=== PATIENT | female | born 1960 | race Caucasian/White ===

== ENCOUNTER 2016-11-01 09:13 | Inpatient (IN) | payer OTHER, BC ==
[~2016-11-01] VITALS: Ht 157.5 cm; Wt 61.6 kg
[~2016-11-01 09:13] MED LIST: ADULT LOW DOSE81 M1 PO; ARANESP100 MCG/0. IV; ASPIRIN81 M2 PO; AVINZA30 MG PO; CALCITRIOL0.25 MCG PO; CALCITRIOL0.5 MCG PO; CLEOCIN300 MG PO; CRESTOR10 MG PO; CRESTOR20 MG PO; DELTASONE DOSEPA5 MG PO; DILAUDID2 MG PO; ESCITALOPRAM OX20 MG PO; ESTRACE1 MG PO; FISH OIL 1,0001 EAC7 PO; FLEXERIL10 MG PO; HECORIA1 MG PO; HUMALOG100 UNIT/1; HUMALOG100 UNIT/2 SC; HYDROCODON-ACE1 EAC7 PO; LANTUS 10100 UNITS/ SC; LANTUS 3 M100 UNITS1 SC; LANTUS 3 M100 UNITS1 SQ; LEVEMIR100 UNIT/2 SC; LEXAPRO20 MG PO; MIRALAX17 GM PO; NORVASC10 MG PO; NORVASC5 MG PO; PREDNISONE5 MG PO; PROGRAF1 MG PO; PROTONIX40 MG PO; ROXICODONE5 MG PO; SODIUM BICARBO325 MG PO; TACROLIMUS ANHYD1 MG PO; TOPROL XL6.25 MG PO; VALACYCLOVIR500 MG PO; VITAMIN D2000 UNIT PO; ZOFRAN4 MG PO
[2016-11-01 10:36] LABS: HEMATOCRIT 53.2 % (36.0-46.0); MCH 31.9 PG (29.0-34.0); MCHC 32.5 G/DL (30.0-36.0); MCV 98.2 FL (83-99); MEAN PLAT.VOLUME 9.7 uM^3 (9.5-12.4); PLATELET COUNT 203 K/uL (156-360); RBC DIS.WIDTH-CV 16.2 % (11.8-14.6); RBC DIS.WIDTH-SD 55.4 % (39-53); RED BLOOD COUNT 5.42 M/uL (3.80-5.20); WHITE BLOOD COUNT 13.3 K/uL (4.1-10.2)
[2016-11-01 10:47] LABS: CHLORIDE 95 mEq/L (99-109); SODIUM 138 mEq/L (136-147)
[2016-11-01 10:49] LABS: GLUCOSE 115 mg/dL (70-99)
[2016-11-01 10:51] LABS: ANION GAP 19 MEQ/L (2-14); TOTAL BILIRUBIN 0.5 mg/dL (0.0-1.0)
[2016-11-01 10:53] LABS: ALKALINE PHOSPHATASE 213 IU/L (3-129); GFR ESTIMATE (CALCULATED) 3 mL/min/
[2016-11-01 10:54] LABS: UREA NITROGEN (BUN) 55 mg/dL (9-23)
[2016-11-01 10:55] LABS: POTASSIUM 6.4 mEq/L (3.7-5.4)
[2016-11-01 10:56] LABS: LIPASE 21 U/L (1.0-51.0)
[2016-11-01 12:53] LABS: POTASSIUM 5.9 mEq/L (3.7-5.4)
[2016-11-01 13:08] LABS: EOSINOPHIL (%) 2.9 % (0-5); EOSINOPHIL COUNT 0.4 K/uL (0-0.3); IMMATURE GRANULOCYTE (%) 0.1 % (0.0-0.7); IMMATURE GRANULOCYTE COUNT 0.1 K/uL; LYMPHOCYTE COUNT 1.6 K/uL (1.0-2.8); MONOCYTE (%) 5.9 % (3-12); MONOCYTE COUNT 0.8 K/uL (0-0.8); NEUTROPHIL (%) 79.4 % (45-76); NEUTROPHIL COUNT 10.9 K/uL (1.8-6.4)
[2016-11-01 19:23] VITALS: BP 144/70
[2016-11-01] MEDS ORDERED: TOPROL XL50 MG PO (20:20)
[2016-11-01] MEDS ORDERED: OXYCODONE HCL10 MG PO (20:21)
[2016-11-01] MEDS ORDERED: TACROLIMUS ANHYD1 MG PO (20:25)
[2016-11-01] MEDS ORDERED: LINZESS145 MCG PO (20:27)
[2016-11-01] MEDS ORDERED: CALCIUM ACETAT667 MG PO (20:27)
[2016-11-01] MEDS ORDERED: SENSIPAR60 MG PO (20:28)
[2016-11-01] MEDS ORDERED: FUROSEMIDE40 MG PO (20:29)
[2016-11-01] MEDS ORDERED: PRISTIQ ER25 MG PO (20:29)
[2016-11-01] MEDS ORDERED: ESTRACE42.5 GM VG (20:30)
[2016-11-01 23:44] VITALS: BP 139/68
[2016-11-02 04:08] VITALS: BP 141/73
[2016-11-02 07:28] VITALS: BP 134/67
[2016-11-02 09:19] LABS: ANION GAP 16 MEQ/L (2-14); CHLORIDE 99 MEQ/L (99-109); SAMPLE HEMOLYSIS CHECK 0; SAMPLE ICTERIC CHECK 0; SAMPLE LIPEMIA CHECK 0; SODIUM 139 MEQ/L (136-147)
[2016-11-02 09:21] LABS: POTASSIUM 4.6 MEQ/L (3.7-5.4)
[2016-11-02 09:25] LABS: GLUCOSE 92 mg/dL (70-99)
[2016-11-02 09:26] LABS: EOSINOPHIL (%) 4.2 % (0-5); EOSINOPHIL COUNT 0.4 K/uL (0-0.3); HEMATOCRIT 46.4 % (36.0-46.0); IMMATURE GRANULOCYTE (%) 0.2 % (0.0-0.7); LYMPHOCYTE COUNT 1.4 K/uL (1.0-2.8); MCH 33.4 PG (29.0-34.0); MCHC 33.2 G/DL (30.0-36.0); MCV 100.7 FL (83-99); MEAN PLAT.VOLUME 10.8 uM^3 (9.5-12.4); MONOCYTE (%) 8.8 % (3-12); MONOCYTE COUNT 0.8 K/uL (0-0.8); NEUTROPHIL (%) 70.5 % (45-76); PLATELET COUNT 150 K/uL (156-360); RBC DIS.WIDTH-CV 16.2 % (11.8-14.6); RBC DIS.WIDTH-SD 58.5 % (39-53); RED BLOOD COUNT 4.61 M/uL (3.80-5.20)
[2016-11-02 09:27] LABS: WHITE BLOOD COUNT 8.5 K/uL (4.1-10.2)
[2016-11-02 09:42] LABS: GFR ESTIMATE (CALCULATED) 7 mL/min/
[2016-11-02 09:53] LABS: UREA NITROGEN (BUN) 17 mg/dL (9-23)
[2016-11-02 12:30] VITALS: BP 144/81
[2016-11-02 15:22] VITALS: BP 135/70
[2016-11-02 19:18] VITALS: BP 128/66
[2016-11-02 21:21] LABS: POINT-OF-CARE METER ID UU14174225
[2016-11-03 00:11] VITALS: BP 119/79
[2016-11-03 03:38] VITALS: BP 123/71
[2016-11-03 07:07] LABS: HEMATOCRIT 46.8 % (36.0-46.0); MCH 33.2 PG (29.0-34.0); MCHC 32.9 G/DL (30.0-36.0); MCV 100.9 FL (83-99); MEAN PLAT.VOLUME 10.6 uM^3 (9.5-12.4); NRBC (%) 0.9 /100 WBC (0-0); PLATELET COUNT 155 K/uL (156-360); RBC DIS.WIDTH-CV 16.3 % (11.8-14.6); RBC DIS.WIDTH-SD 58.1 % (39-53); RED BLOOD COUNT 4.64 M/uL (3.80-5.20); WHITE BLOOD COUNT 7.2 K/uL (4.1-10.2)
[2016-11-03 07:38] LABS: ANION GAP 16 MEQ/L (2-14); CHLORIDE 99 MEQ/L (99-109); GFR ESTIMATE (CALCULATED) 11 mL/min/; GLUCOSE 62 mg/dL (70-99); POTASSIUM 4.5 MEQ/L (3.7-5.4); SAMPLE HEMOLYSIS CHECK 0; SAMPLE ICTERIC CHECK 0; SAMPLE LIPEMIA CHECK 0; SODIUM 142 MEQ/L (136-147); UREA NITROGEN (BUN) 15 mg/dL (9-23)
[2016-11-03 07:43] LABS: EOSINOPHIL (%) 1.5 % (0-5); EOSINOPHIL COUNT 0.1 K/uL (0-0.3); IMMATURE GRANULOCYTE (%) 0.3 % (0.0-0.7); LYMPHOCYTE COUNT 1.9 K/uL (1.0-2.8); MONOCYTE (%) 6.4 % (3-12); MONOCYTE COUNT 0.5 K/uL (0-0.8); NEUTROPHIL (%) 65.5 % (45-76); NEUTROPHIL COUNT 4.8 K/uL (1.8-6.4)
[2016-11-03 08:47] VITALS: BP 138/68
[2016-11-03 11:44] VITALS: BP 134/71
[2016-11-03 12:14] LABS: POINT-OF-CARE METER ID UU14188625
== END 2016-11-03 15:10 | disposition home or self-care (01) | DRG 70 ==
LOC: EME 09:13 → EDOF 14:17 → 5SOUTH 15:02
PROVIDERS: Emergency Medicine; Hospitalist; Internal Medicine Nephrology; Nurse Practitioner Family; Student in an Organized Health Care Education/Training Program
PROC: 5A1D00Z (ICD-10-PCS; principal; 2016-11-01)
DX: G93.41 Metabolic encephalopathy (principal); N18.6 End stage renal disease; Z94.0 Kidney transplant status; I12.0 Hypertensive chronic kidney disease with stage 5 chronic kidney disease or end stage renal disease; F33.9 Major depressive disorder, recurrent, unspecified; F05 Delirium due to known physiological condition; E87.5 Hyperkalemia; E78.5 Hyperlipidemia, unspecified; D63.1 Anemia in chronic kidney disease; K21.9 Gastro-esophageal reflux disease without esophagitis; E55.9 Vitamin D deficiency, unspecified; J45.909 Unspecified asthma, uncomplicated; G89.29 Other chronic pain; Z85.3 Personal history of malignant neoplasm of breast; Z96.643 Presence of artificial hip joint, bilateral; Z90.11 Acquired absence of right breast and nipple; L91.8 Other hypertrophic disorders of the skin; Z79.4 Long term (current) use of insulin; Z99.2 Dependence on renal dialysis
CPT/HCPCS: 70450; 71020; 76770; 76776; 80048; 80053; 80197 90; 81003; 82140; 82948; 83605; 83690; 84132 91; 84999; 85025; 85027; 93005; 99281; 99285; J1644; J1815; J7030; J7507; J7512

== ENCOUNTER 2016-11-08 13:55 | Emergency (ER) | payer OTHER, BC ==
[~2016-11-08] VITALS: Ht 157.5 cm; Wt 57.7 kg
[~2016-11-08 13:55] MED LIST changes: +CALCIUM ACETAT667 MG PO; +ESTRACE42.5 GM VG; +FUROSEMIDE40 MG PO; +LINZESS145 MCG PO; +OXYCODONE HCL10 MG PO; +PRISTIQ ER25 MG PO; +SENSIPAR60 MG PO; +TOPROL XL50 MG PO
[2016-11-08 14:21] VITALS: BP 103/63
[2016-11-08 14:40] LABS: CHLORIDE 91 mEq/L (99-109); POTASSIUM 3.8 mEq/L (3.7-5.4); SODIUM 143 mEq/L (136-147)
[2016-11-08 14:42] LABS: GLUCOSE 241 mg/dL (70-99)
[2016-11-08 14:43] LABS: ANION GAP 18 MEQ/L (2-14)
[2016-11-08 14:50] LABS: GFR ESTIMATE (CALCULATED) 6 mL/min/; UREA NITROGEN (BUN) 23 mg/dL (9-23)
[2016-11-08 15:01] VITALS: BP 92/60
[2016-11-08 15:53] LABS: HEMATOCRIT 45.8 % (36.0-46.0); MCH 32.8 PG (29.0-34.0); MCV 99.3 FL (83-99); RBC DIS.WIDTH-CV 16.8 % (11.8-14.6); RBC DIS.WIDTH-SD 58.7 % (39-53); RED BLOOD COUNT 4.61 M/uL (3.80-5.20); WHITE BLOOD COUNT 7.4 K/uL (4.1-10.2)
[2016-11-08 16:00] VITALS: BP 93/57
[2016-11-08 16:31] VITALS: BP 84/53
[2016-11-08 16:48] LABS: MEAN PLAT.VOLUME 11.4 uM^3 (9.5-12.4)
[2016-11-08 16:49] LABS: PLATELET COUNT 106 K/uL (156-360)
[2016-11-08 17:00] VITALS: BP 95/51
[2016-11-08 17:14] VITALS: BP 95/51
== END 2016-11-08 17:16 | disposition home or self-care (01) ==
LOC: EME 13:55
PROVIDERS: Emergency Medicine
DX: S00.93XA Contusion of unspecified part of head, initial encounter (principal); N18.6 End stage renal disease; E11.9 Type 2 diabetes mellitus without complications; E78.5 Hyperlipidemia, unspecified; I10 Essential (primary) hypertension; Z99.2 Dependence on renal dialysis; W18.30XA Fall on same level, unspecified, initial encounter; Z86.000 Personal history of in-situ neoplasm of breast
CPT/HCPCS: 70450; 71020; 72125; 80048; 85027; 93005; 99281; 99285; J7040